=== PATIENT | female | born 1975 | race Two or more races ===

== ENCOUNTER 2022-06-15 10:08 | Outpatient (CLI) | payer OTHER | END 2022-06-15 10:12 | disposition home or self-care (01) | LOC: NUCLEAR 10:08 | PROVIDERS: ATTEND Otolaryngology Otolaryngology/Facial Plastic Surgery | DX: I65.22 Occlusion and stenosis of left carotid artery (principal); H93.12 Tinnitus, left ear; R09.81 Nasal congestion; E04.1 Nontoxic single thyroid nodule ==

== ENCOUNTER 2022-07-13 12:50 | Outpatient (CLI) | payer OTHER | END 2022-07-13 12:54 | disposition home or self-care (01) | LOC: SONOGRAMA 12:50 | PROVIDERS: ATTEND Pathology Anatomic Pathology | DX: D34 Benign neoplasm of thyroid gland (principal); E04.9 Nontoxic goiter, unspecified; E04.2 Nontoxic multinodular goiter ==